=== PATIENT | female | born 1980 | race African-American/Black ===

== ENCOUNTER 2021-05-07 11:07 | Emergency (ER) | payer MEDICARE ==
[~2021-05-07] VITALS: Ht 154.9 cm; Wt 50.0 kg
[~2021-05-07 11:07] MED LIST: SERT25TA PO
[2021-05-07] MEDS ORDERED: IBUPROFEN 600MG TABLET PO ONE (12:00)
[2021-05-07] MEDS ORDERED: ACETAMINOPHEN 325MG TABLET PO ONE (12:00)
[2021-05-07 12:21] VITALS: BP 140/80
[2021-05-07] MEDS ORDERED: NAPR-1176 MT (12:40)
[2021-05-07] MEDS ORDERED: ACET-2708 MT (12:40)
== END 2021-05-07 13:03 | disposition home or self-care (01) ==
LOC: ER 11:07
DX: M25.512 Pain in left shoulder (principal); F32.9 Major depressive disorder, single episode, unspecified; X58.XXXA Exposure to other specified factors, initial encounter; Y93.89 Activity, other specified; Y92.018 Other place in single-family (private) house as the place of occurrence of the external cause
CPT/HCPCS: 73030; 81025; 93005; 99283; J7040

== ENCOUNTER 2021-08-03 15:48 | Emergency (ER) | payer MEDICAID, MEDICARE ==
[~2021-08-03] VITALS: Ht 157.5 cm; Wt 53.0 kg
[~2021-08-03 15:48] MED LIST changes: +ACET-2708 MT; +NAPR-1176 MT
[2021-08-03] MEDS ORDERED: HYDROCODONE/ACETAMINOPHEN 10/325MG TABLET PO ONE (18:15)
[2021-08-03] MEDS ORDERED: IBUPROFEN 600MG TABLET PO ONE (18:45)
[2021-08-03] MEDS ORDERED: IBUP-2029 MT (19:54)
[2021-08-03 21:14] VITALS: BP 135/76
== END 2021-08-03 21:17 | disposition home or self-care (01) ==
LOC: ER 15:48
DX: M79.89 Other specified soft tissue disorders (principal)
CPT/HCPCS: 73130; 99283

== ENCOUNTER 2022-04-26 10:06 | Emergency (ER) | payer MEDICAID, MEDICARE ==
[~2022-04-26] VITALS: Ht 157.5 cm; Wt 55.0 kg
[~2022-04-26 10:06] MED LIST changes: +IBUP-2029 MT
[2022-04-26 10:31] VITALS: BP 156/91
== END 2022-04-26 12:16 | disposition home or self-care (01) ==
LOC: ER 10:06
DX: M25.511 Pain in right shoulder (principal)
CPT/HCPCS: 73030; 73120; 99284

== ENCOUNTER 2023-06-21 09:49 | Emergency (ER) | payer MEDICAID ==
[~2023-06-21] VITALS: Ht 154.9 cm; Wt 52.0 kg
[2023-06-21 09:51] VITALS: O2SAT 100
[2023-06-21 11:07] LABS: BASOPHILS % 0.9 % (0.0-2.0); EOSINOPHILS % 1.8 % (0.0-5.0); HEMATOCRIT. 36.5 % (36.0-48.0); HEMOGLOBIN. 12.8 g/dL (12.0-16.0); LYMPHOCYTES % 29.5 % (20.0-50.0); MEAN CORPUSCULAR HEMOGLOBIN 34.7 pg (28.0-32.0); MEAN CORPUSCULAR HGB CONC 35.1 g/dL (31.0-37.0); MEAN PLATELET VOLUME 7.2 fl (7.4-10.4); MONOCYTES % 17.9 % (2.0-8.0); NEUTROPHILS % 49.9 % (40.0-76.0); PLATELET 300 x1000/uL (130-400); RED BLOOD CELL COUNT 3.69 mill/uL (4.2-5.4); RED CELL DISTRIBUTION WIDTH 12.7 % (11.6-14.6); WHITE BLOOD COUNT 3.7 x1000/uL (4.5-11.0)
[2023-06-21 11:20] LABS: DIFFERENTIAL COMMENT 1
[2023-06-21 11:40] LABS: CHLORIDE 105 mEq/L (98-107); INDEX HEMOLYSI 1 (1-3); INDEX ICTERIC 1 (1-4); INDEX LIPEMIC 1 (1-3); POTASSIUM 4.6 mEq/L (3.5-5.1); SODIUM 136 mEq/L (136-145)
[2023-06-21 11:47] LABS: ALANINE AMINOTRANSFERASE 24 IU/L (13-61); ASPARTATE AMINOTRANSFERASE 17 IU/L (15-37); BILIRUBIN TOTAL 1.2 mg/dL (0.1-1.0); CALCIUM 8.8 mg/dL (8.5-10.1); CARBON DIOXIDE 27 mEq/L (21-32); CREATININE 0.8 mg/dL (0.6-1.3); GLUCOSE 94 mg/dL (70-105); PROTEIN TOTAL 8.2 g/dL (6.0-8.3); UREA NITROGEN BLOOD 8 mg/dL (7-21)
[2023-06-21] MEDS ORDERED: IBUPROFEN 600MG TABLET PO ONE (12:00)
[2023-06-21 12:10] LABS: CLARITY URINE CLOUDY (CLEAR); COLOR URINE DARK YELLOW (YELLOW); GLUCOSE URINE NEGATIVE (NEGATIVE); KETONES URINE TRACE (NEGATIVE); LEUKOCYTE ESTERASE URINE 2+ (NEGATIVE); NITRITE URINE NEGATIVE (NEGATIVE); OCCULT BLOOD URINE TRACE (NEGATIVE); PH URINE 5.5 (4.5-8.0); PROTEIN URINE TRACE (NEGATIVE); SPECIFIC GRAVITY URINE 1.023 (1.005-1.030)
[2023-06-21 12:37] LABS: BACTERIA URINE 3+; SQUAMOUS EPITHELIAL CELL URINE 1+ /lpf (RARE/1+); WBC URINE 25-50 /hpf (0-2); YEAST URINE NONE SEEN
[2023-06-21 13:45] LABS: HCG SCREEN NEGATIVE
[2023-06-21] MEDS ORDERED: CEPH500T MT (14:54)
[2023-06-21 15:30] VITALS: BP 145/88; PULSE 90; RESP 18; TEMP 98.2
== END 2023-06-21 15:45 | disposition home or self-care (01) ==
LOC: ER 10:27
DX: N39.0 Urinary tract infection, site not specified (principal); D25.9 Leiomyoma of uterus, unspecified; F32.9 Major depressive disorder, single episode, unspecified; Z79.899 Other long term (current) drug therapy
CPT/HCPCS: 36415; 76830; 76856; 76857; 80053; 81003; 81025; 84703; 85025; 93976; 99284

== ENCOUNTER 2023-12-15 09:42 | Emergency (ER) | payer MEDICAID ==
[~2023-12-15] VITALS: Ht 162.6 cm; Wt 63.0 kg
[~2023-12-15 09:42] MED LIST changes: +CEPH500T MT
[2023-12-15 09:49] VITALS: O2SAT 100
[2023-12-15 12:44] VITALS: BP 156/90; PULSE 90; RESP 18; TEMP 97.7
== END 2023-12-15 12:45 | disposition home or self-care (01) ==
LOC: ER 09:42
DX: S63.501A Unspecified sprain of right wrist, initial encounter (principal); W51.XXXA Accidental striking against or bumped into by another person, initial encounter; Y93.89 Activity, other specified; Y92.89 Other specified places as the place of occurrence of the external cause; Y99.8 Other external cause status
CPT/HCPCS: 73130; 99283